=== PATIENT | female | born 1940 | race Caucasian/White ===

== ENCOUNTER 2024-08-03 13:26 | Emergency (ER) | payer OTHER ==
--- NOTE | 2024-08-03 15:52 | RAD REPORT ---
EXAM DESCRIPTION: CT - [id number] - 08/03/2024 2:40 pm CLINICAL HISTORY: fall COMPARISON: No comparisons TECHNIQUE: Axial thin cut noncontrast CT images of the head were obtained. Axial thin cut noncontrast CT images of the cervical spine were obtained. Multiplanar reformatted images were generated and reviewed. All CT scans are performed using dose optimization technique as appropriate and may include automated exposure control or mA/KV adjustment according to patient size. FINDINGS: CT HEAD WITHOUT CONTRAST: No acute hemorrhage, hydrocephalus or extra-axial collection is identified.No areas of brain edema or midline shift. The paranasal sinuses and mastoids are clear.The calvarium is intact. CT CERVICAL SPINE WITHOUT CONTRAST: No fracture or subluxation.No prevertebral soft tissues swelling is identified. IMPRESSION: No acute traumatic intracranial or cervical spine findings.
[2024-08-03 15:58] LABS: Absolute Basophils 0.1 K/uL (0-0.5); Absolute Lymphocytes (CBC) 1.7 K/uL (0.7-4.9); Absolute Monocytes 0.5 K/uL (0.1-1.3); Absolute Neutrophil 4.8 K/uL (1.8-8.0); Basophils % 0.8 % (0-1.3); Eosinophils % 0.7 % (0-4.4); Hematocrit 40.9 % (36.0-45.0); Hemoglobin 13.6 g/dL (12.0-15.0); Lymphocytes % 23.8 % (15.3-44.8); MCH 30.1 pg (27.0-35.0); MCHC 33.3 g/dL (32.0-36.0); MCV 90.2 fL (80-100); MPV 8.4 fL (7.6-11.3); Monocytes % 7.2 % (3.3-12.3); Neutrophils % 67.5 % (41.7-73.7); Nucleated Red Blood Cells % 0.1 % (0-0); Platelets 206 thou/uL (152-406); RBC Red Blood Cell Count 4.54 M/uL (3.86-4.86); Red Cell Distribution Width 14.4 % (12.1-15.2)
--- NOTE | 2024-08-03 16:19 | RAD REPORT ---
EXAM DESCRIPTION: RAD - Shoulder Left 2 View - 08/03/2024 3:22 pm CLINICAL HISTORY: PAIN COMPARISON: No comparisons TECHNIQUE: Internal and external rotation views of the left shoulder were obtained. FINDINGS: There is no fracture or dislocation. AC joint and glenohumeral joint mild degenerative tiffany nges. No acute or suspicious findings. IMPRESSION: No acute abnormalities. Mild degenerative changes.
--- NOTE | 2024-08-03 16:19 | RAD REPORT ---
EXAM DESCRIPTION: RAD - Ribs Left - 08/03/2024 3:22 pm CLINICAL HISTORY: PAIN COMPARISON: No comparisons TECHNIQUE: Left ribs, 3 views. FINDINGS: No displaced rib fracture is evident. No aggressive rib lesion. No underlying pneumothorax, effusion, infiltrate or pulmonary contusion. IMPRESSION: Negative left rib series.
--- NOTE | 2024-08-03 16:21 | RAD REPORT ---
EXAM DESCRIPTION: RAD - Hip Left 2 View - 08/03/2024 3:24 pm CLINICAL HISTORY: PAIN COMPARISON: No comparisons TECHNIQUE: Left hip, AP and frogleg views of the left hip. FINDINGS: There is no fracture or dislocation. Mild degenerative changes with marginal femoral head and acetabular spurring. No acute or destructive bony process seen. IMPRESSION: No acute findings of the left hip. Mild degenerative changes as above.
--- NOTE | 2024-08-03 16:57 | EDPHYS ---
Physician Documentation [facility] Name: Josseline Mary Age: 83 yrs Sex: Female : 1940 Arrival Date: 08/03/2024 Time: 13:26 Bed 12 Private MD: ED Physician Zach Gross HPI: 08/03 13:51 This 83 yrs old Female presents to ER via Wheelchair with complaints of Fall Injury. ms3 13:51 83-year-old female past medical history of congestive heart failure, DVT presents to [facility] [place] emergency department for fall patient states this morning she was walking and tripped over an extension cord. Patient is having pain with walking. She states the pain is located in her left hip, left shoulder, left ribs.. Historical: - Allergies: 13:40 No Known Allergies; ld1 - Home Meds: 13:40 Lasix Oral [Active]; Xarelto oral [Active]; ld1 - PMHx: 13:40 Congestive heart failure; Blood clots; ld1 - PSHx: 13:40 Partial hysterectomy; Right kidney removal; ld1 13:42 Cholecystectomy; ld1 - Immunization history:: Adult Immunizations up to date. - Infectious Disease History:: Denies. - Social history:: Smoking status: Patient denies any tobacco usage or history of. ROS: 13:51 Constitutional: Negative for fever, and chills. Neck: Negative for injury, pain, and ms3 swelling, Cardiovascular: Negative for chest pain, and palpitations. Respiratory: Negative for shortness of breath, cough, wheezing, and pleuritic chest pain, Abdomen/GI: Negative for abdominal pain, nausea, vomiting, diarrhea, and constipation, 13:51 MS/extremity: Positive for pain, of the left arm, left hip, left ribs, Exam: 13:51 Constitutional: This is a well developed, well nourished patient who is awake, alert, ms3 and in no acute distress. Cardiovascular: Regular rate and rhythm with a normal S1 and S2. No gallops, murmurs, or rubs. Normal PMI, no JVD. No pulse deficits. Respiratory: Lungs have equal breath sounds bilaterally, clear to auscultation and percussion. No rales, rhonchi or wheezes noted. No increased work of breathing, no retractions or nasal flaring. 13:51 Chest/axilla: Inspection: normal, Palpation: tenderness, that is moderate, of the left lateral anterior chest, 13:51 Musculoskeletal/extremity: Extremities: noted in the Left shoulder: pain, tenderness, noted in the Left hip: pain, tenderness, Vital Signs: 13:38 BP 113 / 67; Pulse 80; Resp 18; Temp 97.6(O); Pulse Ox 98% on R/A; Weight 78.02 kg; ld1 Height 5 ft. 2 in. ; Pain 5/10; 15:45 BP 117 / 76; Pulse 64; Resp 18; Pulse Ox 100% on R/A; Weight 79.38 kg; Height 5 ft. 3 ar6 in. ; 17:07 BP 116 / 72; Pulse 66; Resp 18; Pulse Ox 99% on R/A; ar6 15:45 Body Mass Index 31.00 (79.38 kg, 160.02 cm) ar6 13:38 Pain Scale: Adult ld1 MDM: 13:50 Patient medically screened. ms3 13:51 Differential diagnosis: abrasion, closed head injury, contusion, fracture, multiple ms3 trauma, sprain, strain. 17:06 Data reviewed: vital signs, nurses notes, lab test result(s), radiologic studies, CT ms3 scan, plain films. Independent interpretation of the following test(s) in the Emergency Department CT Scan: My interpretation is CT head without contrast images reviewed by me do not reveal intracranial hemorrhage. Counseling: I had a detailed discussion with the patient and/or guardian regarding the historical points, exam findings, and any diagnostic results supporting the discharge/admit diagnosis, lab results, radiology results, the need for outpatient follow up, to return to the emergency department if symptoms worsen or persist or if there are any questions or concerns that arise at home. ED course: Discussed labs and imaging with patient. Patient to follow-up with primary care physician in 2 to 3 days. All questions were answered. Return precautions discussed include worsening symptoms, or any other concerns. On reevaluation patient is alert and oriented x 4, no apparent distress, nontoxic-appearing, ambulatory.. 08/03 13:51 Order name: Basic Metabolic Panel; Complete Time: 16:29 ms3 08/03 13:51 Order name: CBC with Diff; Complete Time: 16:29 ms3 08/03 13:51 Order name: Type And Screen; Complete Time: 16:51 ms3 08/03 13:51 Order name: CT Head C Spine; Complete Time: 16:29 ms3 08/03 13:51 Order name: Hip Left 2 View XRAY; Complete Time: 16:29 ms3 08/03 13:51 Order name: Ribs Left XRAY; Complete Time: 16:29 ms3 08/03 13:51 Order name: Shoulder Left (2 View) XRAY; Complete Time: 16:29 ms3 08/03 13:51 Order name: Labs collected and sent; Complete Time: 15:58 ms3 Administered Medications: No medications were administered Disposition Summary: 08/03/24 16:56 Discharge Ordered Notes: Location: Home ms3 Condition: Stable ms3 Diagnosis - Fall on same level, unspecified ms3 - Pain in left hip ms3 - Pain in left shoulder ms3 - Left sided chest wall pain ms3 Followup: ms3 - With: Private Physician - When: 2 - 3 days - Reason: Recheck today's complaints Discharge Instructions: - Discharge Summary Sheet ms3 - Musculoskeletal Pain ms3 Forms: - Medication Reconciliation Form ms3 - Antibiotic Education ms3 - Prescription Opioid Use ms3 - Patient Portal Instructions ms3 - Leadership Thank You Letter ms3 Signatures: Dispatcher [employer] Zach Gonsalze DO DO ms3 Rosa Gross, RN RN ld1
--- NOTE | 2024-08-03 16:57 | ER ---
Nurse's Notes [facility] Name: Josseline Mary Age: 83 yrs Sex: Female : 1940 Arrival Date: 08/03/2024 Time: 13:26 Bed 12 Private MD: Diagnosis: Fall on same level, unspecified;Pain in left hip;Pain in left shoulder;Left sided chest wall pain Presentation: 08/03 13:38 Chief complaint: Patient states: Pt reports tripping over extension cord this morning ld1 hitting door frame - c/o pain left rib cage, left hip and left shoulder pain. Did not hit head, negative LOC. Pt is taking Xarelto daily. Coronavirus screen: At this time, the client does not indicate any symptoms associated with coronavirus-19. Ebola Screen: No symptoms or risks identified at this time. Initial Sepsis Screen: Does the patient meet any 2 criteria? No. Patient's initial sepsis screen is negative. Does the patient have a suspected source of infection? No. Patient's initial sepsis screen is negative. Risk Assessment: Do you want to hurt yourself or someone else? Patient reports no desire to harm self or others. Onset of symptoms was August 03, 2024 at 13:40. 13:38 Method Of Arrival: Wheelchair ld1 13:45 Acuity: JEIMY 2 ld1 Triage Assessment: 13:42 General: Appears in no apparent distress. comfortable, Behavior is calm, cooperative, ld1 appropriate for age. Pain: Complains of pain in anterior aspect of left lateral abdomen and left arm Pain does not radiate. EENT: No signs and/or symptoms were reported regarding the EENT system. Neuro: Level of Consciousness is awake, alert, obeys commands, Oriented to person, place, time, situation, Appropriate for age. Cardiovascular: Capillary refill < 3 seconds Patient's skin is warm and dry. Respiratory: Airway is patent Respiratory effort is even, unlabored. GI: Abdomen is round non-distended. : No signs and/or symptoms were reported regarding the genitourinary system. Derm: No signs and/or symptoms reported regarding the dermatologic system. Historical: - Allergies: 13:40 No Known Allergies; ld1 - Home Meds: 13:40 Lasix Oral [Active]; Xarelto oral [Active]; ld1 - PMHx: 13:40 Congestive heart failure; Blood clots; ld1 - PSHx: 13:40 Partial hysterectomy; Right kidney removal; ld1 13:42 Cholecystectomy; ld1 - Immunization history:: Adult Immunizations up to date. - Infectious Disease History:: Denies. - Social history:: Smoking status: Patient denies any tobacco usage or history of. Screenin:45 [facility] ED Fall Risk Assessment (Adult) History of falling in the last 3 months, ar6 including since admission Yes- physiologic fall (2 pts) Confusion or Disorientation No (0 pts) Intoxicated or Sedated No (0 pts) Impaired Gait No (0 pts) Mobility Assist Device Used No (0 pt) Altered Elimination No (0 pt) Score/Fall Risk Level 0 - 2 = Low Risk Oriented to surroundings, Maintained a safe environment, Educated pt \T\ family on fall prevention, incl call for assistance when getting out of bed, Hourly rounding (assess needs \T\ fall precautionary measures) done, Used ambulatory aids as needed (educated on \T\ assisted with). Abuse screen: Denies threats or abuse. Denies injuries from another. Nutritional screening: No deficits noted. Tuberculosis screening: No symptoms or risk factors identified. Assessment: 15:45 General: Appears in no apparent distress. uncomfortable, pt. was in radiology. Behavior ar6 is calm, cooperative, appropriate for age. Pain: Complains of pain in back, chest, abdomen, pelvis, left arm and left leg Pain began suddenly, pt. reports falling on left side; denies LOC; denies hitting head; pt. reports she tripped over an extension cord due to her dog. Neuro: Level of Consciousness is awake, alert, obeys commands, Oriented to person, place, time, situation, Facial symmetry appears normal, Pupils are PERRLA. Cardiovascular: Capillary refill < 3 seconds. Respiratory: Airway is patent. GI: Abdomen is round non-distended, Bowel sounds present X 4 quads. : No signs and/or symptoms were reported regarding the genitourinary system. EENT: Oral mucosa is moist. Derm: Skin is intact, is healthy with good turgor, Skin is dry, Skin is pink, warm \T\ dry. Skin temperature is warm. 15:45 Derm: Bruising that is left side. ar6 15:45 Musculoskeletal: pain to left side when moving. Injury Description: Bruise sustained to ar6 abdomen is pt. reports falling this morning. Vital Signs: 13:38 BP 113 / 67; Pulse 80; Resp 18; Temp 97.6(O); Pulse Ox 98% on R/A; Weight 78.02 kg; ld1 Height 5 ft. 2 in. ; Pain 5/10; 15:45 BP 117 / 76; Pulse 64; Resp 18; Pulse Ox 100% on R/A; Weight 79.38 kg; Height 5 ft. 3 ar6 in. ; 17:07 BP 116 / 72; Pulse 66; Resp 18; Pulse Ox 99% on R/A; ar6 15:45 Body Mass Index 31.00 (79.38 kg, 160.02 cm) ar6 13:38 Pain Scale: Adult ld1 ED Course: 13:29 Patient arrived in ED. mr 13:38 Zach Gross DO is Attending Physician. ms3 13:40 Triage completed. ld1 13:42 Arm band placed on right wrist. ld1 14:40 CT Head C Spine In Process Unspecified. EDMS 15:07 Usha Delgado, RN is Primary Nurse. ar6 15:23 Hip Left 2 View XRAY In Process Unspecified. EDMS 15:24 Ribs Left XRAY In Process Unspecified. EDMS 15:24 Shoulder Left (2 View) XRAY In Process Unspecified. EDMS 15:45 No apparent distress. Awaiting lab results, Awaiting radiology results. ar6 15:45 Patient has correct armband on for positive identification. Placed in gown. Bed in low ar6 position. Call light in reach. Side rails up X2. Provided Education on: fall precautions. Client placed on continuous cardiac and pulse oximetry monitoring. NIBP monitoring applied. Door closed. Noise minimized. Lights dimmed. Warm blanket given. pt. wanted to sit in w/c; wheels locked. 15:45 No provider procedures requiring assistance completed. Inserted saline lock: 22 gauge ar6 in right antecubital area, using aseptic technique. Blood collected. Flushed with 10 mL NS. 15:58 Basic Metabolic Panel Sent. ar6 15:58 CBC with Diff Sent. ar6 15:58 Type And Screen Sent. ar6 17:08 IV discontinued, intact, bleeding controlled, No redness/swelling at site. Pressure ar6 dressing applied. Administered Medications: No medications were administered Medication: 15:45 VIS not applicable for this client. ar6 Outcome: 16:56 Discharge ordered by . ms3 17:08 Discharged to home via wheelchair, ar6 17:08 Condition: good 17:08 Discharge instructions given to patient, friend, Instructed on discharge instructions, follow up and referral plans. Demonstrated understanding of instructions, follow-up care, Prescriptions given X 17:09 Patient left the ED. ar6 Signatures: Dispatcher [employer] EDMS Rosina Ramirez, Reg Reg mr Ginny Zach, DO DO ms3 Rosa Gross, RN RN ld1 Usha Delgado RN RN ar6 Corrections: (The following items were deleted from the chart) 13:45 13:38 Acuity: JEIMY 3 ld1 ld1
[2024-08-03 17:20] VITALS: TEMP 97.6
[2024-08-03 17:23] VITALS: BP 116/72; O2SAT 99
== END 2024-08-03 17:09 | disposition home or self-care (01) ==
LOC: ER 13:26
DX: M25.552 Pain in left hip (principal); M25.512 Pain in left shoulder; R07.89 Other chest pain; W18.30XA Fall on same level, unspecified, initial encounter; I50.9 Heart failure, unspecified; Z79.01 Long term (current) use of anticoagulants
CPT/HCPCS: 36415; 70450; 72125; 80048; 85025; 86850; 86900; 86901; 99284

== ENCOUNTER 2025-08-26 12:29 | Emergency (ER) | payer OTHER ==
--- NOTE | 2025-08-26 13:05 | RAD REPORT ---
EXAM: CT brain without contrast HISTORY: Syncope COMPARISON: None TECHNIQUE: Multiple contiguous axial images were obtained and a CT of the brain without contrast.. Sagittal and coronal reconstruction performed. Automated exposure control, adjustment of the mA and/or kV according to patient size, and/or iterative reconstruction. Unless otherwise specified, incidental f indings do not require dedicated imaging follow-up FINDINGS: An intracranial bleed is not seen Ventricles are normal caliber No extra-axial fluid collection noted No significant hypodensity within the brain. 9 mm calcification adjacent to the left posterior falx e quivocal for a meningioma. No surrounding edema. It is unchanged from prior exam. No fluid within the visualized sinuses or mastoids noted. IMPRESSION: No acute intracranial abnormality noted. If the patient continues to have symptoms to suggest an acute intracranial abnormality then MRI of th e brain would be recommended.
[2025-08-26 13:34] LABS: Absolute Lymphocytes (CBC) 1.9 K/uL (0.7-4.9); Hematocrit 44.3 % (36.0-45.0); Hemoglobin 14.6 g/dL (12.0-15.0); MCH 29.9 pg (27.0-35.0); MCHC 32.9 g/dL (32.0-36.0); MCV 90.9 fL (80-100); MPV 8.3 fL (7.6-11.3); Nucleated RBC Absolute Count 0.0 (0-0); Nucleated Red Blood Cells % 0.0 % (0-0); RBC Red Blood Cell Count 4.87 M/uL (3.86-4.86); White Blood Count 7.10 thou/uL (4.3-10.9)
[2025-08-26 13:41] LABS: PT Prothrombin Time 12.9 SECONDS (10-13.0); Protime INR 1.15
[2025-08-26 13:54] LABS: ALT/SGPT 22 U/L (13-56); AST/SGOT 13 U/L (15-37); Albumin 3.7 g/dL (3.4-5.0); Albumin/Globulin Ratio 1.0 (1.1-1.8); Alkaline Phosphatase 105 U/L (45-117); Anion Gap 7.8 mEq/L (5.0-15.0); BUN Blood Urea Nitrogen 16 mg/dL (7-18); Globulin 3.8 g/dL (2.3-3.5); Glucose Level 95 mg/dL (74-106); Magnesium 2.4 mg/dL (1.6-2.4); Potassium 3.8 mEq/L (3.5-5.1); Troponin High Sensitivity 6.1 pg/mL (<58.9)
[2025-08-26 13:55] LABS: Bilirubin Indirect, Calculated 0.1 mg/dL (0.2-0.8)
[2025-08-26 14:07] LABS: Blood Morphology Comment NOT SEEN (NOT SEEN); White Blood Cell Scan OK (OK)
[2025-08-26] MEDS ORDERED: NA CHLORIDE 0.9% 1,000 ML ONE (14:13)
--- NOTE | 2025-08-26 14:43 | ER ---
Nurse's Notes [facility] Name: Josseline Mary Age: 84 yrs Sex: Female : 1940 Arrival Date: 08/26/2025 Time: 12:29 Bed 7 Private MD: Diagnosis: Generalized weakness, dehydration, renal insufficiency Presentation: 08/26 12:36 Chief complaint: Patient states: SHE TOOK FLEXERIL YESTERDAY MORNING AND FELT STRANGE, dd2 VERY TIRED AND CAME HOME AND FELL ASLEEP. PT REPORTS HER DAUGHTER HAD A DIFFICULT TIME WAKING UP YESTERDAY. ALSO REPORTS FEELING CONFUSED, WEAK, MOUTH DRYNESS. Coronavirus screen: At this time, the client does not indicate any symptoms associated with coronavirus-19. Ebola Screen: No symptoms or risks identified at this time. Initial Sepsis Screen: Does the patient meet any 2 criteria? No. Patient's initial sepsis screen is negative. Does the patient have a suspected source of infection? No. Patient's initial sepsis screen is negative. Risk Assessment: Do you want to hurt yourself or someone else? Patient reports no desire to harm self or others. Onset of symptoms was August 25, 2025. 12:36 Method Of Arrival: Ambulatory dd2 12:36 Acuity: JEIMY 3 dd2 Triage Assessment: 12:41 General: Appears in no apparent distress. Behavior is cooperative, appropriate for age, dd2 anxious. Pain: Denies pain. Neuro: Reports dizziness, THICK TONGUE, DRY MOUTH AND FEELS "FOGGY HEADED". Historical: - Allergies: 12:41 No Known Allergies; dd2 - PMHx: 12:41 blood clots; Congestive heart failure; dd2 - PSHx: 12:41 Cholecystectomy; partial hysterectomy; right kidney removal; dd2 - Immunization history:: Adult Immunizations up to date. - Infectious Disease History:: Denies. - Social history:: Smoking status: Patient denies any tobacco usage or history of. Screenin:37 Abuse screen: Denies threats or abuse. Nutritional screening: No deficits noted. ap3 Tuberculosis screening: No symptoms or risk factors identified. 16:01 [facility] ED Fall Risk Assessment (Adult) History of falling in the last 3 months, ap3 including since admission No falls in past 3 months (0 pts) Confusion or Disorientation No (0 pts) Intoxicated or Sedated No (0 pts) Impaired Gait No (0 pts) Mobility Assist Device Used No (0 pt) Altered Elimination Score/Fall Risk Level 0 - 2 = Low Risk Oriented to surroundings, Maintained a safe environment, Educated pt \\T\\ family on fall prevention, incl call for assistance when getting out of bed, Assessed \\T\\ reinforced patient's understanding of fall precautions, Hourly rounding (assess needs \\T\\ fall precautionary measures) done, Used ambulatory aids as needed (educated on \\T\\ assisted with). Assessment: 13:36 General: Appears in no apparent distress. Behavior is calm, cooperative, appropriate ap3 for age. Neuro: Level of Consciousness is awake, alert, obeys commands, Oriented to person, place, time, situation, Reports feeling "foggy". Cardiovascular: Patient's skin is warm and dry. Respiratory: Airway is patent Respiratory effort is even, unlabored, Respiratory pattern is regular, symmetrical. 15:06 General: awaiting fluid completion prior to patient discharge. . ap3 16:04 Reassessment: Patient appears in no apparent distress at this time. Patient and/or af3 family updated on plan of care and expected duration. Pain level reassessed. Patient is alert, oriented x 3, equal unlabored respirations, skin warm/dry/pink. Vital Signs: 12:36 BP 130 / 90; Pulse 90; Resp 17; Temp 98.1; Pulse Ox 100% on R/A; Weight 83.01 kg; Pain dd2 0/10; 13:43 BP 152 / 74; Pulse 78; Resp 15; Pulse Ox 95% ; jl7 15:43 BP 130 / 67; Pulse 79; Resp 15; Pulse Ox 100% ; jl7 16:01 BP 130 / 67; Pulse 83; Resp 18; Pulse Ox 100% on R/A; ap3 12:36 Pain Scale: Adult dd2 ED Course: 12:35 Patient arrived in ED. dd2 12:36 Wilder Mckeon MD is Attending Physician. sp3 12:41 Triage completed. dd2 12:41 Arm band placed on left wrist. dd2 12:51 CT Head Brain wo Cont In Process Unspecified. EDMS 13:16 Demetrice Regan, FABIO is Primary Nurse. ap3 13:27 Initial lab(s) drawn, by me, sent to lab. Inserted saline lock: 22 gauge in left ap3 antecubital area, using aseptic technique. Blood collected. Flushed with 10 mL NS. 13:37 Patient has correct armband on for positive identification. Placed in gown. Bed in low ap3 position. Call light in reach. Side rails up X2. Provided Education on: call light education . Client placed on continuous cardiac and pulse oximetry monitoring. NIBP monitoring applied. court monitor on. Pulse ox on. NIBP on. 16:01 No provider procedures requiring assistance completed. IV discontinued, intact, ap3 bleeding controlled, No redness/swelling at site. Pressure dressing applied. Administered Medications: 14:39 Drug: NS 0.9% IV 1000 ml IV at 1 bolus Per protocol; to be given as a bolus over 60 jl7 minutes Route: IV; Rate: 1 bolus; Site: left antecubital; 16:01 Follow up: IV Status: Completed infusion; IV Intake: 1000ml ap3 15:41 Not Given (Patient Refused): ondansetron 4 mg IVP once; over 2 minutes af3 15:41 Not Given (Patient Refused): [id number] mg IVP once af3 Medication: 16:02 VIS not applicable for this client. ap3 Intake: 16:01 IV: 1000ml; Total: 1000ml. ap3 Outcome: 14:43 Discharge ordered by . sp3 16:02 Discharged to home ambulatory, ap3 16:02 Condition: good 16:02 Discharge instructions given to patient, Instructed on discharge instructions, follow up and referral plans. Demonstrated understanding of instructions, follow-up care, 16:04 Patient left the ED. af3 Signatures: Dispatcher [employer] EDMS Yordan Meehan RN RN jl7 Demetrice Regan RN RN ap3 Wilder Mckeon MD MD sp3 Riya Galan RN RN af3 SEGUNDO MCCAULEY RN RN dd2 Corrections: (The following items were deleted from the chart) 14:39 14:38 NS 0.9% IV 1000 ml IV at 1 bolus in right antecubital jl7 jl7
--- NOTE | 2025-08-26 14:43 | EDPHYS ---
Physician Documentation [facility] Name: Josseline Mary Age: 84 yrs Sex: Female : 1940 Arrival Date: 08/26/2025 Time: 12:29 Bed 7 Private MD: ED Physician Wilder Mckeon HPI: 08/26 14:38 This 84 yrs old Female presents to ER via Ambulatory with complaints of General sp3 Weakness. 14:38 84-year-old female with history of CHF now presents to the ED with chief complaint sp3 generalized weakness over the last 2 days. Inciting event was when she took 7.5 mg of Flexeril coupled with her gabapentin, aspirin and Lasix. She states she started feeling weak and really dry mouth. She denies any headache, neck pain, chest pain, shortness of breath, focal neurological deficit, inability to walk or talk, syncope, near syncope, or any other signs or symptoms on ROS at this time. Symptoms are very very vague.. Historical: - Allergies: 12:41 No Known Allergies; dd2 - PMHx: 12:41 blood clots; Congestive heart failure; dd2 - PSHx: 12:41 Cholecystectomy; partial hysterectomy; right kidney removal; dd2 - Immunization history:: Adult Immunizations up to date. - Infectious Disease History:: Denies. - Social history:: Smoking status: Patient denies any tobacco usage or history of. ROS: 14:39 Constitutional: Negative for fever, chills, and weight loss, Eyes: Negative for injury, sp3 pain, redness, and discharge, Neck: Negative for injury, pain, and swelling, Cardiovascular: Negative for chest pain, palpitations, and edema, Respiratory: Negative for shortness of breath, cough, wheezing, and pleuritic chest pain, Abdomen/GI: Negative for abdominal pain, nausea, vomiting, diarrhea, and constipation, Back: Negative for injury and pain, MS/Extremity: Negative for injury and deformity, Skin: Negative for injury, rash, and discoloration, Psych: Negative for depression, anxiety, suicide ideation, homicidal ideation, and hallucinations, Allergy/Immunology: Negative for hives, rash, and allergies, Endocrine: Negative for neck swelling, polydipsia, polyuria, polyphagia, and marked weight changes, 14:39 All other systems are negative, Exam: 14:39 Constitutional: This is a well developed, well nourished patient who is awake, alert, sp3 and in no acute distress. Head/Face: Normocephalic, atraumatic. Eyes: Pupils equal round and reactive to light, extra-ocular motions intact. Lids and lashes normal. Conjunctiva and sclera are non-icteric and not injected. Cornea within normal limits. Periorbital areas with no swelling, redness, or edema. ENT: Nares patent. No nasal discharge, no septal abnormalities noted. External auditory canals are clear. Oropharynx with no redness, swelling, or masses, exudates, or evidence of obstruction, uvula midline. Mucous membranes moist. Neck: Trachea midline, no thyromegaly or masses palpated, and no cervical lymphadenopathy. Supple, full range of motion without nuchal rigidity, or vertebral point tenderness. No Meningismus. Chest/axilla: Normal chest wall appearance and motion. Nontender with no deformity. No lesions are appreciated. Cardiovascular: Regular rate and rhythm with a normal S1 and S2. No gallops, murmurs, or rubs. Normal PMI, no JVD. No pulse deficits. Respiratory: Lungs have equal breath sounds bilaterally, clear to auscultation and percussion. No rales, rhonchi or wheezes noted. No increased work of breathing, no retractions or nasal flaring. Abdomen/GI: Soft, non-tender, with normal bowel sounds. No distension or tympany. No guarding or rebound. No evidence of tenderness throughout. Back: No spinal tenderness. No costovertebral tenderness. Full range of motion. Skin: Warm, dry with normal turgor. Normal color with no rashes, no lesions, and no evidence of cellulitis. MS/ Extremity: Pulses equal, no cyanosis. Neurovascular intact. Full, normal range of motion. Neuro: Awake and alert, GCS 15, oriented to person, place, time, and situation. Cranial nerves II-XII grossly intact. Motor strength 5/5 in all extremities. Sensory grossly intact. Cerebellar exam normal. Normal gait. Psych: Awake, alert, with orientation to person, place and time. Behavior, mood, and affect are within normal limits. 14:39 ECG was reviewed by the Attending Physician. EKG demonstrates normal sinus rhythm at 71 bpm with normal intervals, normal QRS, normal axis and normal ST/T-segment's without evidence of acute ischemia. Vital Signs: 12:36 BP 130 / 90; Pulse 90; Resp 17; Temp 98.1; Pulse Ox 100% on R/A; Weight 83.01 kg; Pain dd2 0/10; 13:43 BP 152 / 74; Pulse 78; Resp 15; Pulse Ox 95% ; jl7 15:43 BP 130 / 67; Pulse 79; Resp 15; Pulse Ox 100% ; jl7 16:01 BP 130 / 67; Pulse 83; Resp 18; Pulse Ox 100% on R/A; ap3 12:36 Pain Scale: Adult dd2 MDM: 12:40 Medical Screening Exam initiated sp3 14:41 Data reviewed: vital signs, nurses notes, old medical records, lab test result(s), EKG, sp3 radiologic studies. 14:41 ED course: 84-year-old female with vague symptoms of generalized weakness. Differential sp3 diagnosis includes dehydration, electrolyte abnormality, ACS, CHF, among others. To lesser degree TIA CVA spectrum or other intracranial abnormality. Workup has included CT scan of the head, EKG and general labs. Creatinine at 1.39. CT head is negative and remainder of other labs are normal. Will slightly hydrate patient given her dry mouth as well and discharge patient home. I do not believe she has acute coronary syndrome or other critical process including sepsis or shock. Vital signs are normal. Patient is okay with the plan and states she will return if she gets worse.. 08/26 12:42 Order name: Basic Metabolic Panel; Complete Time: 14: 3 08/26 12:42 Order name: CBC with Diff; Complete Time: 14: sp3 08/26 12:42 Order name: Hepatic Function; Complete Time: 14: sp3 08/26 12:42 Order name: Magnesium; Complete Time: 14: sp3 08/26 12:42 Order name: Protime (+inr); Complete Time: 13:41 sp3 08/26 12:42 Order name: Troponin High Sensitivity; Complete Time: 14: sp3 08/26 13:39 Order name: CBC Smear Scan; Complete Time: 14:07 EDMS 08/26 12:42 Order name: CT Head Brain wo Cont; Complete Time: 13:41 sp3 08/26 12:42 Order name: EKG; Complete Time: 12:42 sp3 08/26 12:42 Order name: Cardiac monitoring; Complete Time: 13:42 sp3 08/26 12:42 Order name: EKG - Nurse/Tech; Complete Time: 13:42 sp3 08/26 12:42 Order name: IV Saline Lock; Complete Time: 13:36 sp3 08/26 12:42 Order name: Labs collected and sent; Complete Time: 13:36 sp3 08/26 12:42 Order name: NPO; Complete Time: 13:17 sp3 08/26 12:42 Order name: O2 Sat Monitoring; Complete Time: 13:36 sp3 Administered Medications: 14:39 Drug: NS 0.9% IV 1000 ml IV at 1 bolus Per protocol; to be given as a bolus over 60 jl7 minutes Route: IV; Rate: 1 bolus; Site: left antecubital; 16:01 Follow up: IV Status: Completed infusion; IV Intake: 1000ml ap3 15:41 Not Given (Patient Refused): ondansetron 4 mg IVP once; over 2 minutes af3 15:41 Not Given (Patient Refused): [id number] mg IVP once af3 Disposition Summary: 08/26/25 14:43 Discharge Ordered Notes: Location: Home sp3 Condition: Stable(08/26/25 14:43) sp3 Diagnosis - Generalized weakness, dehydration, renal insufficiency sp3 Followup: sp3 - With: Private Physician - When: Upon discharge from the Emergency Department - Reason: Continuance of care Discharge Instructions: - Discharge Summary Sheet sp3 - Weakness sp3 Forms: - Medication Reconciliation Form sp3 - Antibiotic Education sp3 - Prescription Opioid Use sp3 - Patient Portal Instructions sp3 - Leadership Thank You Letter sp3 Signatures: Dispatcher [employer] EDMS Yordan Meehan RN RN jl7 Demetrice Regan RN RN ap3 Wilder Mckeon MD MD sp3 SEGUNDO MCCAULEY RN RN dd2 Riya Galan RN af3 Corrections: (The following items were deleted from the chart) 12:42 12:42 BASIC METABOLIC PANEL+C.LAB.BRZ ordered. EDMS EDMS 12:42 12:42 CBC+H.LAB.BRZ ordered. EDMS EDMS 12:42 12:42 HEPATIC FUNCTION+C.LAB.BRZ ordered. EDMS EDMS 12:42 12:42 MAGNESIUM+C.LAB.BRZ ordered. EDMS EDMS 12:42 12:42 PROTIME (+INR)+COAG.LAB.BRZ ordered. EDMS EDMS 12:42 12:42 Troponin High Sensitivity+C.LAB.BRZ ordered. EDMS EDMS 14:43 14:43 Fair sp3 sp3
[2025-08-26] MEDS ORDERED: ONDANSETRON 4 MG/2 ML VIAL ONE (15:35)
[2025-08-26] MEDS ORDERED: KETOROLAC 30 MG/ML INJ ONE (15:35)
[2025-08-26 16:51] VITALS: TEMP 98.1; O2SAT 100
[2025-08-26 16:53] VITALS: BP 130/67
== END 2025-08-26 16:04 | disposition home or self-care (01) ==
LOC: ER 12:29
DX: E86.0 Dehydration (principal); N28.9 Disorder of kidney and ureter, unspecified; I50.9 Heart failure, unspecified
CPT/HCPCS: 93005; 85025; 80048; 36415; 83735; 85610; 80076; 84484; 70450; 96360; 99285; J7030; J1885; J2405